=== PATIENT | male | born 1990 | race Caucasian/White ===

== ENCOUNTER 2018-12-25 13:22 | Emergency (ER) | payer SELFPAY ==
[2018-12-25] MEDS ORDERED: Lidocaine 1% PF 5 ML VIAL ONE (13:47)
--- NOTE | 2018-12-25 14:21 | RAD ---
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 FINDINGS: There is a laceration involving the distal tip of the right index finger. No acute fracture is eviden t. No radiopaque foreign body is noted. IMPRESSION: Soft tissue injury of the right index finger. No acute osseous abnormality. POS: [facility]
[2018-12-25] MEDS ORDERED: Bacitracin 1 PK ONE (15:37)
== END 2018-12-25 16:03 | disposition home or self-care (01) ==
LOC: SCSER 13:22
DX: S61.210A Laceration without foreign body of right index finger without damage to nail, initial encounter (principal); F17.210 Nicotine dependence, cigarettes, uncomplicated; F41.9 Anxiety disorder, unspecified; F32.9 Major depressive disorder, single episode, unspecified; Z71.6 Tobacco abuse counseling; W26.8XXA Contact with other sharp object(s), not elsewhere classified, initial encounter
CPT/HCPCS: 12001; 90471; 99406; J2001

== ENCOUNTER 2020-08-02 13:26 | Emergency (ER) | payer SELFPAY ==
[2020-08-02 21:51] LABS: SARS-CoV-2 PCR by NAA Not Detected (NotDetected)
== END 2020-08-02 14:46 | disposition home or self-care (01) ==
LOC: ERS 13:26
DX: R11.2 Nausea with vomiting, unspecified (principal); R19.7 Diarrhea, unspecified; F17.210 Nicotine dependence, cigarettes, uncomplicated
CPT/HCPCS: 87635; 99284; U0003; U0005